=== PATIENT | male | born 1975 | race Two or more races ===

== ENCOUNTER 2016-12-01 19:23 | Emergency (ER) | payer OTHER ==
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
== END 2016-12-01 21:15 | disposition home or self-care (01) ==
LOC: CFTX 19:23
DX: S16.1XXA Strain of muscle, fascia and tendon at neck level, initial encounter (principal); V43.52XA Car driver injured in collision with other type car in traffic accident, initial encounter; Y92.410 Unspecified street and highway as the place of occurrence of the external cause
CPT/HCPCS: 70450; 72040; 96372; 99284; J1885